=== PATIENT | female | born 1995 | race American Indian/Alaskan Native ===

== ENCOUNTER 2024-11-01 07:36 | Emergency (ER) | payer OTHER ==
[~2024-11-01] VITALS: Ht 170.2 cm; Wt 60.0 kg
[2024-11-01] MEDS ORDERED: HALOPERIDOL LACTATE 5 MG/ML VIAL IM ONE (07:45)
[2024-11-01] MEDS ORDERED: LORazepam 2 MG/ML VIAL IM ONE (07:45)
[2024-11-01 09:12] LABS: BASOPHILS 0.2 % (0.1-1.2); EOSINOPHILS 0.2 % (0.7-5.8); LYMPHOCYTES 25.4 % (19.3-51.7); MCH 30.0 PG (25.6-32.2); MCHC 34.6 g/dL (32.2-35.5); MCV 86.6 fL (79.4-94.8); MONOCYTES 9.2 % (4.7-12.5); NEUTROPHILS 64.8 % (34.0-71.1); RBC 3.87 M/uL (3.93-5.22)
[2024-11-01 09:33] LABS: ALCOHOL, MEDICAL <3 ng/dL (<3); ALT (SGPT) 18 U/L (14-59); AST (SGOT) 20 U/L (15-37); GLOMERULAR FILTRATION RATE,EST 133 mL/min (>60); PROTEIN, TOTAL 6.5 g/dL (6.4-8.2); TSH, 3RD GENERATION 0.995 uIU/mL (0.358-3.740); UREA NITROGEN 2 mg/dL (7-18)
[2024-11-01] MEDS ORDERED: DEPAKOTE500 MG PO (13:23)
[2024-11-01 16:10] LABS: BLOOD/HGB, URINE NEGATIVE (Negative); KETONE, URINE SMALL (Negative); LEUK ESTERASE, URINE NEGATIVE (negative); NITRITE, URINE NEGATIVE (negative)
[2024-11-01 16:24] LABS: AMPHETAMINES, URINE NEGATIVE (NEGATIVE); BARBITURATES, URINE NEGATIVE (NEGATIVE); BENZODIAZEPINE, URINE NEGATIVE (NEGATIVE); CANNABINOID, URINE NEGATIVE (NEGATIVE); COCAINE, URINE NEGATIVE (NEGATIVE); ECSTASY, URINE NEGATIVE (NEGATIVE); FENTANYL, URINE NEGATIVE (NEGATIVE); METHADONE, URINE NEGATIVE (NEGATIVE); OPIATES, URINE NEGATIVE (NEGATIVE); OXYCODONE, URINE NEGATIVE (NEGATIVE); PHENCYCLIDINE, URINE NEGATIVE (NEGATIVE)
[2024-11-01 18:00] VITALS: BP 110/80
== END 2024-11-01 18:02 | disposition home or self-care (01) ==
LOC: ED 07:36
PROVIDERS: Emergency Medicine
DX: F23 Brief psychotic disorder (principal); F31.9 Bipolar disorder, unspecified; Z79.899 Other long term (current) drug therapy
CPT/HCPCS: 36415; 80053; 80307; 81003; 84443; 84703; 85025; 96372; 99284; G0480; J1200; J1630; J2060

== ENCOUNTER 2024-11-03 06:49 | Emergency (ER) | payer MEDICAID ==
[~2024-11-03] VITALS: Ht 170.2 cm; Wt 53.0 kg
[~2024-11-03 06:49] MED LIST: DEPAKOTE500 MG PO
--- OUTSIDE RECORDS SUMMARY | 2024-11-03 06:56 | XMS ---
PreManage Notification: NADIA CLARK Security Supervisor Sound Technician Events No recent Security Events currently on file CRITERIA MET - [facility] - 2 Visits in 30 Days CARE PROVIDERS YANI DECKER [facility] Current PHONE: Unknown DOUGLAS QUINTERO Nurse Practitioner: Family Current PHONE: [phone] Chari has no Care Guidelines for this patient. Steve VISIT COUNT (12 MO.) [address] [place] [address] [place] TOTAL 3 NOTE: Visits indicate total known visits. ED/UCC VISIT TRACKING (12 MO.) 11/03/2024 06:49 [facility] TYPE: Emergency COMPLAINT: - MEDICAL CLEARANCE 11/01/2024 07:38 [facility] TYPE: Emergency COMPLAINT: - MEDICAL CLEARANCE DIAGNOSES: - Bipolar disorder, unspecified - Brief psychotic disorder - Mental disorder, not otherwise specified - Other press tender long goods (current) drug therapy 08/21/2024 10:34 [facility] TYPE: Emergency DIAGNOSES: - Manic episode, unspecified - Psych - Psychiatric Evaluation INPATIENT VISIT TRACKING (12 MO.) No inpatient visits to display in this time frame [email or web address]
[2024-11-03 07:20] LABS: BLOOD/HGB, URINE NEGATIVE (Negative); KETONE, URINE >=80 (Negative); LEUK ESTERASE, URINE NEGATIVE (negative); NITRITE, URINE NEGATIVE (negative)
[2024-11-03 07:41] LABS: BASOPHILS 0.2 % (0.1-1.2); EOSINOPHILS 0.2 % (0.7-5.8); LYMPHOCYTES 14.3 % (19.3-51.7); MCH 29.9 PG (25.6-32.2); MCHC 34.9 g/dL (32.2-35.5); MCV 85.6 fL (79.4-94.8); MONOCYTES 8.7 % (4.7-12.5); NEUTROPHILS 76.3 % (34.0-71.1); RBC 4.18 M/uL (3.93-5.22)
[2024-11-03 07:52] LABS: ALCOHOL, MEDICAL <3 ng/dL (<3); ALT (SGPT) 37 U/L (14-59); AST (SGOT) 66 U/L (15-37); GLOMERULAR FILTRATION RATE,EST 122 mL/min (>60); PROTEIN, TOTAL 7.4 g/dL (6.4-8.2); TSH, 3RD GENERATION 0.534 uIU/mL (0.358-3.740); UREA NITROGEN 14 mg/dL (7-18)
[2024-11-03 08:35] LABS: AMPHETAMINES, URINE NEGATIVE (NEGATIVE); BARBITURATES, URINE NEGATIVE (NEGATIVE); BENZODIAZEPINE, URINE NEGATIVE (NEGATIVE); CANNABINOID, URINE NEGATIVE (NEGATIVE); COCAINE, URINE NEGATIVE (NEGATIVE); ECSTASY, URINE NEGATIVE (NEGATIVE); FENTANYL, URINE NEGATIVE (NEGATIVE); METHADONE, URINE NEGATIVE (NEGATIVE); OPIATES, URINE NEGATIVE (NEGATIVE); OXYCODONE, URINE NEGATIVE (NEGATIVE); PHENCYCLIDINE, URINE NEGATIVE (NEGATIVE)
[2024-11-03] MEDS ORDERED: risperiDONE 1 MG TAB PO ONE (09:15)
[2024-11-03] MEDS ORDERED: ACETAMINOPHEN 500 MG TAB PO ONE (14:15)
[2024-11-04] MEDS ORDERED: TRAZODONE HCL 100 MG TAB PO ONE (03:15)
[2024-11-04 08:00] VITALS: BP 114/80
== END 2024-11-04 08:00 ==
LOC: ED 06:49
PROVIDERS: Emergency Medicine
DX: F31.9 Bipolar disorder, unspecified (principal); F23 Brief psychotic disorder
CPT/HCPCS: 36415; 80053; 80307; 81003; 84443; 84703; 85025; 99285; A9270; G0480

== ENCOUNTER 2024-11-18 12:07 | Emergency (ER) | payer BC, MEDICAID ==
[~2024-11-18] VITALS: Ht 154.9 cm; Wt 55.7 kg
--- OUTSIDE RECORDS SUMMARY | 2024-11-18 12:14 | XMS ---
PreManage Notification: NADIA CLARK Security Apiculturist Events No recent Security Events currently on file CRITERIA MET - [facility] 2 Visits in 30 Days CARE PROVIDERS [facility] Current PH[facility]: [phone] [facility] PHONE: Unknown DOUGLAS QUINTERO Nurse Practitioner: Family Current PHONE: [phone] Chari has no Care Guidelines for this patient. EDeepali. VISIT COUNT (12 MO.) 3 [facility] TOTAL 4 NOTE: Visits indicate total known visits. ED/UCC VISIT TRACKING (12 MO.) 11/18/2024 12:08 [facility] TYPE: Emergency COMPLAINT: - MENTAL HEALTH ASSESSMENT 11/03/2024 06:49 [facility] TYPE: Emergency COMPLAINT: - MEDICAL CLEARANCE DIAGNOSES: - Bipolar disorder, unspecified - Brief psychotic disorder - Unspecified psychosis not due to a substance or known physiological condition 11/01/2024 07:38 [facility] TYPE: Emergency COMPLAINT: - MEDICAL CLEARANCE DIAGNOSES: - Bipolar disorder, unspecified - Brief psychotic disorder - Mental disorder, not otherwise specified - Other fci (current) drug therapy 08/21/2024 10:34 [facility] TYPE: Emergency DIAGNOSES: - Manic episode, unspecified - Psych - Psychiatric Evaluation INPATIENT VISIT TRACKING (12 MO.) 11/04/2024 11:24 [facility] [place] TYPE: Psychiatric Services DIAGNOSES: 0. Bipolar disorder, unspecified 0. Unspecified psychosis not due to a substance or known physiological condition 1. Bipolar disorder, unspecified 2. Patient's other noncompliance with medication regimen for other reason [email or web address]
[2024-11-18 12:51] LABS: BASOPHILS 0.2 % (0.1-1.2); EOSINOPHILS 1.3 % (0.7-5.8); LYMPHOCYTES 37.4 % (19.3-51.7); MCH 30.1 PG (25.6-32.2); MCHC 34.0 g/dL (32.2-35.5); MCV 88.5 fL (79.4-94.8); MONOCYTES 9.9 % (4.7-12.5); NEUTROPHILS 50.8 % (34.0-71.1); RBC 4.19 M/uL (3.93-5.22)
[2024-11-18 13:17] LABS: ALCOHOL, MEDICAL <3 ng/dL (<3); ALT (SGPT) 20 U/L (14-59); AST (SGOT) 20 U/L (15-37); GLOMERULAR FILTRATION RATE,EST 122 mL/min (>60); PROTEIN, TOTAL 7.2 g/dL (6.4-8.2); TSH, 3RD GENERATION 1.035 uIU/mL (0.358-3.740); UREA NITROGEN 7 mg/dL (7-18)
[2024-11-18] MEDS ORDERED: OLANZapine 10 MG TABDIS PO ONE ×2 (13:45→17:15)
[2024-11-18 17:29] LABS: BLOOD/HGB, URINE NEGATIVE (Negative); KETONE, URINE NEGATIVE (Negative); LEUK ESTERASE, URINE NEGATIVE (negative); NITRITE, URINE NEGATIVE (negative)
[2024-11-18 17:43] LABS: AMPHETAMINES, URINE NEGATIVE (NEGATIVE); BARBITURATES, URINE NEGATIVE (NEGATIVE); BENZODIAZEPINE, URINE NEGATIVE (NEGATIVE); CANNABINOID, URINE NEGATIVE (NEGATIVE); COCAINE, URINE NEGATIVE (NEGATIVE); ECSTASY, URINE NEGATIVE (NEGATIVE); FENTANYL, URINE NEGATIVE (NEGATIVE); METHADONE, URINE NEGATIVE (NEGATIVE); OPIATES, URINE NEGATIVE (NEGATIVE); OXYCODONE, URINE NEGATIVE (NEGATIVE); PHENCYCLIDINE, URINE NEGATIVE (NEGATIVE)
[2024-11-18] MEDS ORDERED: LORazepam 2 MG/ML VIAL IM ONE (22:00)
[2024-11-18] MEDS ORDERED: HALOPERIDOL LACTATE 5 MG/ML VIAL IM ONE (22:00)
[2024-11-19 11:32] VITALS: BP 135/88
== END 2024-11-19 11:32 | disposition short-term general hospital (02) ==
LOC: ED 12:07
PROVIDERS: Emergency Medicine
DX: F29 Unspecified psychosis not due to a substance or known physiological condition (principal)
CPT/HCPCS: 36415; 80053; 80307; 81003; 84443; 84703; 85025; 99284; A9270; G0480